=== PATIENT | female | born 1985 | race Caucasian/White ===

== ENCOUNTER 2018-05-13 21:38 | Emergency (ER) | payer OTHER ==
[2018-05-13] MEDS ORDERED: XYLOCAINE 1% HCL 20 ML MDV IJ ONE (22:23)
--- NOTE | 2018-05-13 22:36 | ERPHSYRPT ---
- History of Present Illness Time Seen by Provider: 05/13/18 22:17 Source: patient Exam Limitations: no limitations Patient Subjective Stated Complaint: PT WAS CUTTING FABRIC WITH A RAZOR KNIFE AND CUT HER L THUMB; MINOR LACERATION NOTED TO L THUMB; BLEEDING CONTROLLED ART INSTRUCTOR. Triage Nursing Assessment: PT A&O X3; SKIN P, W, & D; NO OTHER DISTRESS NOTED; AMBULATED TO ROOM PER SELF. Physician History: patient accidentally cut left thumb with sharp razor blade prior to arrival to ED. Patient with 1 cm laceration to the radial side of thumb. Bleeding controlled with pressure. Patient denies any numbness, tingling, weakness to distal finger. Tetanus immunization was 2 years ago Occurred: just prior to arrival Method of Injury: incised Quality: intermittent Severity of Pain-Max: mild Severity of Pain-Current: mild Extremities Pain Location: thumb: left Modifying Factors: Improves With: immobilization (iimprove), movement (worsen) Associated Symptoms: none Allergies/Adverse Reactions: No Known Drug Allergies Allergy (Verified 05/13/18 21:57) Home Medications: Venlafaxine HCl [Venlafaxine HCl ER] 75 mg PO DAILY 05/13/18 [History] Hx Tetanus, Diphtheria Vaccination/Date Given: Yes Hx Influenza Vaccination/Date Given: No Hx Pneumococcal Vaccination/Date Given: No Immunizations Up to Date: No - Review of Systems Constitutional: No Fever, No Chills Eyes: No Symptoms Ears, Nose, & Throat: No Symptoms Respiratory: No Symptoms, No Cough, No Dyspnea Cardiac: No Symptoms, No Chest Pain, No Edema, No Syncope Abdominal/Gastrointestinal: No Symptoms, No Abdominal Pain, No Nausea, No Vomiting, No Diarrhea Genitourinary Symptoms: No Symptoms, No Dysuria Musculoskeletal: No Symptoms, No Back Pain, No Neck Pain Skin: Other (left thumb laceration), No Rash Neurological: No Symptoms, No Dizziness, No Focal Weakness, No Sensory Changes Psychological: No Symptoms Endocrine: No Symptoms Hematologic/Lymphatic: No Symptoms Immunological/Allergic: No Symptoms All Other Systems: Reviewed and Negative - Past Medical History Pertinent Past Medical History: Yes Cardiac History: Deep Vein Thrombosis - Past Surgical History Past Surgical History: Yes Female Surgical History: Tubal Ligation - Social History Smoking Status: Current every day smoker How long have you smoked: 15 Exposure to second hand smoke: No Drug Use: none Patient Lives Alone: No - Female History Hx Last Menstrual Period: 2 MONTHS Hx Now: No - Nursing Vital Signs Nursing Vital Signs: Initial Vital Signs Temperature 98.3 F 05/13/18 21:48 Pulse Rate 86 05/13/18 21:48 Respiratory Rate 16 05/13/18 21:48 Blood Pressure 111/78 05/13/18 21:48 O2 Sat by Pulse Oximetry 97 05/13/18 21:48 Pain Scale Pain Intensity 2 - Physical Exam General Appearance: alert Eyes, Ears, Nose, Throat Exam: moist mucous membranes Neck Exam: non-tender, supple Cardiovascular/Respiratory Exam: chest non-tender, normal breath sounds, regular rate/rhythm, no respiratory distress Abdominal Exam: non-tender, No guarding Back Exam: normal inspection, No vertebral tenderness Shoulder Exam: normal inspection Elbow/Forearm Exam: normal inspection, limited ROM Hand Exam: normal ROM, laceration (1 cm laceration to subcutaneous on the radial aspect of left thumb) Neuro/Tendon Exam: normal sensation, normal motor functions, normal tendon functions, no evidence tendon injury Mental Status Exam: alert, oriented x 3, cooperative Skin Exam: normal color, warm, dry SpO2 Interpretation: normal SpO2: 97 Oxygen Delivery: Room Air Procedures - Laceration/Wound Repair Left Finger Wound Location: Left, hand (thumb) Wound Length (cm): 1 Wound's Depth, Shape: superficial Wound Explored: clean Irrigated: Yes Hibiclens Prep: Yes Anesthesia: local, 1% Lidocaine Volume Anesthetic (ccs): 4 Wound Debrided: minimal Wound Repaired With: sutures Suture Size/Type: 5-0, nylon Number of Sutures: 5 Layer Closure?: No Sterile Dressing Applied?: Yes Splint Applied?: Yes Type of Splint Applied: Aluminum Finger Splint Sling Applied?: No - Course Nursing assessment & vital signs reviewed: Yes Ordered Tests: Active Orders 24 hr Category Date Time Status Prepare for Sutures STAT Care 05/13/18 22:23 Active Splint STAT Care 05/13/18 22:23 Active Sutures STAT Care 05/13/18 22:26 Active Medication Summary Discontinued Medications Generic Name Dose Route Start Last Admin Trade Name Freq PRN Reason Stop Dose Admin Lidocaine HCl 5 ml 05/13/18 22:23 05/13/18 22:48 Xylocaine 1% Hcl 20 Ml Mdv IJ 05/13/18 22:24 5 ml STAT ONE Administration Lidocaine HCl Confirm 05/13/18 22:44 Xylocaine 1% Hcl 20 Ml Mdv Administered 05/13/18 22:45 Dose 5 ml .ROUTE .STK-MED ONE - Progress Progress: improved Counseled pt/family regarding: diagnosis - Departure Time of Disposition: 23:22 Departure Disposition: Home Clinical Impression: Laceration of left thumb Condition: Stable Critical Care Time: No Instructions: Finger Fracture Additional Instructions: sutures removed in 10-14 days. Wear splint for the next 1-2 days. May take Motrin 800 mg every 8 hours with food and/or Tylenol 1 g every 4 hours for pain/discomfort. Return for worse pain,, swelling, redness, pus from wound or any problems
[2018-05-13] MEDS ORDERED: XYLOCAINE 1% HCL 20 ML MDV ONE (22:44)
[2018-05-13] MEDS ORDERED: BACIGUENT PACKET ONE (23:22)
[2018-05-13 23:39] VITALS: BP 114/74; PULSE 74; O2SAT 99
== END 2018-05-13 23:38 | disposition home or self-care (01) ==
LOC: ED 21:38
PROC: 0HQGXZZ Repair Left Hand Skin, External Approach (ICD-10-PCS; principal; 2018-05-13)
DX: S61.012A Laceration without foreign body of left thumb without damage to nail, initial encounter (principal); W45.8XXA Other foreign body or object entering through skin, initial encounter; Y93.D2 Activity, sewing; Y92.009 Unspecified place in unspecified non-institutional (private) residence as the place of occurrence of the external cause
CPT/HCPCS: 12001; 96372; 99284; A9270-GY

== ENCOUNTER 2018-06-10 14:10 | Emergency (ER) | payer OTHER ==
[2018-06-10] MEDS ORDERED: Zofran 4 MG/2 ML VIAL IV ONE (14:40)
[2018-06-10] MEDS ORDERED: Sodium Chloride 0.9% 1000 ML 1,000 ML IV STA (14:40)
[2018-06-10] MEDS ORDERED: Pepcid 20 MG VIAL IV ONE ×2 (14:40→15:56)
[2018-06-10] MEDS ORDERED: TORAdol 30 mg Injection IV ONE (14:40)
--- NOTE | 2018-06-10 14:40 | ERPHSYRPT ---
- History of Present Illness Time Seen by Provider: 06/10/18 14:36 Historian: patient Exam Limitations: no limitations Physician History: The patient is a 32-year-old female complaining of worsening left-sided abdominal pain since yesterday. She said mild nausea. She denies vomiting or diarrhea. She has felt hot as well as chilled. She has no urinary problems. She has been taking ibuprofen without much relief. Her past medical history is significant for kidney infections and tubal ligation. Timing/Duration: yesterday, gradual onset, worse Activities at Onset: none Quality: sharpness Abdominal Pain Onset Location: LLQ Pain Radiation: back Severity of Pain-Max: moderate Severity of Pain-Current: moderate Modifying Factors: Improves With: analgesics Associated Symptoms: nausea, No diarrhea, No vomiting, No weakness Previous symptoms: no prior history Allergies/Adverse Reactions: No Known Drug Allergies Allergy (Verified 06/10/18 14:37) Home Medications: No Reportable Medications [No Reported Medications] 06/10/18 [History] Hx Tetanus, Diphtheria Vaccination/Date Given: Yes Hx Influenza Vaccination/Date Given: No Hx Pneumococcal Vaccination/Date Given: No - Review of Systems Constitutional: Fever, Chills Eyes: No Symptoms Ears, Nose, & Throat: No Symptoms Respiratory: No Cough, No Dyspnea Cardiac: No Chest Pain, No Edema, No Syncope Abdominal/Gastrointestinal: Abdominal Pain, Nausea, No Vomiting, No Diarrhea Genitourinary Symptoms: No Dysuria Musculoskeletal: No Back Pain, No Neck Pain Skin: No Rash Neurological: No Dizziness, No Focal Weakness, No Sensory Changes Psychological: No Symptoms Endocrine: No Symptoms Hematologic/Lymphatic: No Symptoms Immunological/Allergic: No Symptoms All Other Systems: Reviewed and Negative - Past Medical History Pertinent Past Medical History: Yes Cardiac History: Deep Vein Thrombosis - Past Surgical History Past Surgical History: Yes Female Surgical History: Tubal Ligation - Social History Smoking Status: Current every day smoker How long have you smoked: 15 Exposure to second hand smoke: No Drug Use: none Patient Lives Alone: No - Nursing Vital Signs Nursing Vital Signs: Initial Vital Signs Temperature 97.9 F 06/10/18 14:26 Pulse Rate 85 06/10/18 14:26 Respiratory Rate 16 06/10/18 14:26 Blood Pressure 116/77 06/10/18 14:26 O2 Sat by Pulse Oximetry 98 06/10/18 14:26 Pain Scale Pain Intensity 8 - Physical Exam General Appearance: no apparent distress, alert Eye Exam: PERRL/EOMI, eyes nml inspection Ears, Nose, Throat Exam: normal ENT inspection, pharynx normal, moist mucous membranes Neck Exam: normal inspection, non-tender, supple, full range of motion Respiratory Exam: normal breath sounds, lungs clear, No respiratory distress Cardiovascular Exam: regular rate/rhythm, normal heart sounds Gastrointestinal/Abdomen Exam: tenderness (left side) Pelvic Exam: not done Rectal Exam: not done Back Exam: normal inspection, normal range of motion, No CVA tenderness, No vertebral tenderness Extremity Exam: normal inspection, normal range of motion, pelvis stable Neurologic Exam: alert, oriented x 3, cooperative, normal mood/affect, nml cerebellar function, sensation nml, No motor deficits Skin Exam: normal color, warm, dry SpO2 Interpretation: normal - Radiology Exams Abdomen X-ray Interpretation: Interpreted by me, Negative Ordered Tests: Active Orders 24 hr Category Date Time Status Clean Catch Urine Specimen STAT Care 06/10/18 14:40 Active IV Insertion STAT Care 06/10/18 14:40 Active KUB Stat Exams 06/10/18 14:40 Taken CBC W DIFF Stat Lab 06/10/18 15:00 Completed CMP Stat Lab 06/10/18 15:00 Completed HCG QUALITATIVE,SERUM Stat Lab 06/10/18 15:00 Completed LIPASE Stat Lab 06/10/18 15:00 Completed Lactic Acid Stat Lab 06/10/18 14:50 Completed UA W/RFX UR CULTURE Stat Lab 06/10/18 15:30 Completed Urine Triage Profile Stat Lab 06/10/18 15:30 Completed Medication Summary Discontinued Medications Generic Name Dose Route Start Last Admin Trade Name Freq PRN Reason Stop Dose Admin Famotidine 20 mg 06/10/18 14:40 06/10/18 16:06 Pepcid 20 Mg Vial IV 06/10/18 14:41 20 mg STAT ONE Administration Famotidine Confirm 06/10/18 15:56 Pepcid 20 Mg Vial Administered 06/10/18 15:57 Dose 20 mg IV .STK-MED ONE Sodium Chloride 1,000 mls @ 999 mls/hr 06/10/18 14:40 06/10/18 16:06 Sodium Chloride 0.9% 1000 Ml IV 06/10/18 15:40 999 mls/hr .Q1H1M STA Administration Sodium Chloride Confirm 06/10/18 15:56 Sodium Chloride 0.9% 1000 Ml Administered 06/10/18 15:57 Dose 1,000 mls @ ud .ROUTE .STK-MED ONE Ketorolac Tromethamine 30 mg 06/10/18 14:40 06/10/18 16:07 Toradol 30 Mg Injection IV 06/10/18 14:41 30 mg STAT ONE Administration Ketorolac Tromethamine Confirm 06/10/18 15:55 Toradol 30 Mg Injection Administered 06/10/18 15:56 Dose 30 mg .ROUTE .STK-MED ONE Ondansetron HCl 4 mg 06/10/18 14:40 06/10/18 16:07 Zofran 4 Mg/2 Ml Vial IV 06/10/18 14:41 4 mg STAT ONE Administration Ondansetron HCl Confirm 06/10/18 15:55 Zofran 4 Mg/2 Ml Vial Administered 06/10/18 15:56 Dose 4 mg .ROUTE .STK-MED ONE Lab/Rad Data: Laboratory Result Diagrams 06/10/18 15:00 06/10/18 15:00 Laboratory Results 06/10/18 06/10/18 06/10/18 Range/Units 15:30 15:30 15:00 WBC (4.0-10.5) K/mm3 RBC (4.1-5.4) M/mm3 Hgb (12.0-16.0) gm/dl Hct (35-47) % MCV (78-100) fl MCH (26-32) pg MCHC (32-36) g/dl RDW (11.5-14.0) % Plt Count (150-450) K/mm3 MPV (6-9.5) fl Gran % (36.0-66.0) % Eos # (Auto) (0-0.5) Absolute Lymphs (auto) (1.0-4.6) Absolute Monos (auto) (0.0-1.3) Lymphocytes % (24.0-44.0) % Monocytes % (0.0-12.0) % Eosinophils % (0.00-5.0) % Basophils % (0.0-0.4) % Absolute Granulocytes (1.4-6.9) Basophils # (0-0.4) Sodium (137-145) mmol/L Potassium (3.5-5.1) mmol/L Chloride (98-107) mmol/L Carbon Dioxide (22-30) mmol/L Anion Gap (5-15) MEQ/L BUN (7-17) mg/dL Creatinine (0.52-1.04) mg/dL Estimated GFR ML/MIN Glucose (74-106) mg/dL Lactic Acid (0.4-2.0) Calcium (8.4-10.2) mg/dL Total Bilirubin (0.2-1.3) mg/dL AST (14-36) U/L ALT (0-35) U/L Alkaline Phosphatase (38-126) U/L Serum Total Protein (6.3-8.2) g/dL Albumin (3.5-5.0) g/dL Lipase (23-300) U/L Serum , Qual NEGATIVE (Negative) Ur Collection Type CCMS Urine Color YELLOW (YELLOW) Urine Appearance HAZY (CLEAR) Urine pH 5.0 (5-6) Ur Specific [place] 1.020 (1.005-1.025) Urine Protein NEGATIVE (Negative) Urine Ketones NEGATIVE (NEGATIVE) Urine Blood NEGATIVE (0-5) Martin/ul Urine Nitrite NEGATIVE (NEGATIVE) Urine Bilirubin NEGATIVE (NEGATIVE) Urine Urobilinogen NORMAL (0-1) mg/dL Ur Leukocyte Esterase NEGATIVE (NEGATIVE) Urine Culture Reflexed NO (NO) Urine Glucose NEGATIVE (NEGATIVE) mg/dL Urine Opiates Level NEGATIVE (NEGATIVE) Ur Methadone NEGATIVE (NEGATIVE) Urine Barbiturates NEGATIVE (NEGATIVE) Ur Phencyclidine (PCP) NEGATIVE (NEGATIVE) Urine Amphetamine NEGATIVE (NEGATIVE) U Benzodiazepine Level NEGATIVE (NEGATIVE) Urine Cocaine NEGATIVE (NEGATIVE) Urine Marijuana (THC) POSITIVE (NEGATIVE) Specimen Received 1530 06/10/18 06/10/18 06/10/18 06/10/18 Range/Units 15:00 15:00 14:50 WBC 6.5 (4.0-10.5) K/mm3 RBC 4.39 (4.1-5.4) M/mm3 Hgb 13.6 (12.0-16.0) gm/dl Hct 39.4 (35-47) % MCV 89.7 (78-100) fl MCH 31.0 (26-32) pg MCHC 34.5 (32-36) g/dl RDW 12.1 (11.5-14.0) % Plt Count 256 (150-450) K/mm3 MPV 10.4 H (6-9.5) fl Gran % 54.9 (36.0-66.0) % Eos # (Auto) 0.17 (0-0.5) Absolute Lymphs (auto) 2.21 (1.0-4.6) Absolute Monos (auto) 0.50 (0.0-1.3) Lymphocytes % 34.2 (24.0-44.0) % Monocytes % 7.7 (0.0-12.0) % Eosinophils % 2.6 (0.00-5.0) % Basophils % 0.6 (0.0-0.4) % Absolute Granulocytes 3.55 (1.4-6.9) Basophils # 0.04 (0-0.4) Sodium 138 (137-145) mmol/L Potassium 4.0 (3.5-5.1) mmol/L Chloride 107 (98-107) mmol/L Carbon Dioxide 25 (22-30) mmol/L Anion Gap 8.9 (5-15) MEQ/L BUN 8 (7-17) mg/dL Creatinine 0.59 (0.52-1.04) mg/dL Estimated GFR > 60.0 ML/MIN Glucose 111 H (74-106) mg/dL Lactic Acid 1.1 (0.4-2.0) Calcium 8.9 (8.4-10.2) mg/dL Total Bilirubin 0.30 (0.2-1.3) mg/dL AST 11 L (14-36) U/L ALT 7 (0-35) U/L Alkaline Phosphatase 54 (38-126) U/L Serum Total Protein 6.4 (6.3-8.2) g/dL Albumin 3.7 (3.5-5.0) g/dL Lipase 28 (23-300) U/L Serum , Qual (Negative) Ur Collection Type Urine Color (YELLOW) Urine Appearance (CLEAR) Urine pH (5-6) Ur Specific [place] (1.005-1.025) Urine Protein (Negative) Urine Ketones (NEGATIVE) Urine Blood (0-5) Martin/ul Urine Nitrite (NEGATIVE) Urine Bilirubin (NEGATIVE) Urine Urobilinogen (0-1) mg/dL Ur Leukocyte Esterase (NEGATIVE) Urine Culture Reflexed (NO) Urine Glucose (NEGATIVE) mg/dL Urine Opiates Level (NEGATIVE) Ur Methadone (NEGATIVE) Urine Barbiturates (NEGATIVE) Ur Phencyclidine (PCP) (NEGATIVE) Urine Amphetamine (NEGATIVE) U Benzodiazepine Level (NEGATIVE) Urine Cocaine (NEGATIVE) Urine Marijuana (THC) (NEGATIVE) Specimen Received - Progress Progress: improved Counseled pt/family regarding: lab results, diagnosis, rad results - Departure Time of Disposition: 16:49 Departure Disposition: Home Clinical Impression: Abdominal pain Condition: Stable Critical Care Time: No Referrals: DOCTOR,NO FAMILY [Primary Care Provider] - Additional Instructions: You have abdominal pain but the cause at this time is unknown. You were given famotidine 20 mg, Zofran 4 mg, Toradol 30 mg, and fluids by IV in the ER. All other lab results and your abdominal x-ray were normal. You can continue taking Tylenol and ibuprofen as needed. Follow-up with your primary medical doctor as needed.
[2018-06-10 15:05] LABS: BASOPHIL % 0.6 % (0.0-0.4); Basophil (Absolute #) 0.04 (0-0.4); Eosinophil % 2.6 % (0.00-5.0); Eosinophil (Absolute #) 0.17 (0-0.5); Granulocyte Absolute (ANC) 3.55 (1.4-6.9); Granulocytes % 54.9 % (36.0-66.0); Hematocrit 39.4 % (35-47); Hemoglobin 13.6 gm/dl (12.0-16.0); Lymphocyte (Absolute #) 2.21 (1.0-4.6); Lymphocytes % 34.2 % (24.0-44.0); Mean Cell Volume 89.7 fl (78-100); Mean Corpuscular Hgb Concent. 34.5 g/dl (32-36); Mean Platelet Volume 10.4 fl (6-9.5); Monocytes % 7.7 % (0.0-12.0); Platelet Count 256 K/mm3 (150-450); Red Blood Count 4.39 M/mm3 (4.1-5.4); Red Cell Distribution Width 12.1 % (11.5-14.0); White Blood Count 6.5 K/mm3 (4.0-10.5)
[2018-06-10 15:35] LABS: ALBUMIN 3.7 g/dL (3.5-5.0); ALKALINE PHOSPHATASE 54 U/L (38-126); ANION GAP 8.9 MEQ/L (5-15); BLOOD UREA NITROGEN 8 mg/dL (7-17); CHLORIDE 107 mmol/L (98-107); Calcium 8.9 mg/dL (8.4-10.2); Carbon Dioxide 25 mmol/L (22-30); Creatinine 1 0.59 mg/dL (0.52-1.04); Glucose 111 mg/dL (74-106); LIPASE 28 U/L (23-300); SGOT/AST 11 U/L (14-36); SGPT/ALT 7 U/L (0-35); SODIUM 138 mmol/L (137-145); Total Protein 6.4 g/dL (6.3-8.2)
[2018-06-10] MEDS ORDERED: TORAdol 30 mg Injection ONE (15:55)
[2018-06-10] MEDS ORDERED: Zofran 4 MG/2 ML VIAL ONE (15:55)
[2018-06-10] MEDS ORDERED: Sodium Chloride 0.9% 1000 ML 1,000 ML ONE (15:56)
[2018-06-10 16:14] VITALS: O2SAT 99
[2018-06-10 16:22] LABS: Appearance HAZY (CLEAR); Bilirubin NEGATIVE (NEGATIVE); Blood NEGATIVE Ery/ul (0-5); Glucose NEGATIVE (NEGATIVE); Ketones NEGATIVE (NEGATIVE); Leukocyte Esterase NEGATIVE (NEGATIVE); Nitrite NEGATIVE (NEGATIVE); Protein,Urine Dip NEGATIVE (Negative); Urobilinogen NORMAL mg/dL (0-1)
[2018-06-10 16:35] LABS: Amphetamine,Urine NEGATIVE (NEGATIVE); Barbiturate,Urine NEGATIVE (NEGATIVE); Benzodiazepine,Urine NEGATIVE (NEGATIVE); Cocaine,Urine NEGATIVE (NEGATIVE); Methadone,Urine NEGATIVE (NEGATIVE); Opiate,Urine NEGATIVE (NEGATIVE); PCP,Urine NEGATIVE (NEGATIVE); THC,Urine POSITIVE (NEGATIVE)
[2018-06-10 17:21] VITALS: BP 108/68; PULSE 62
--- NOTE | 2018-06-10 22:04 | XRAY ---
Indication: Abdomen pain and nausea. Comparison: None KUB nonacute and nonobstructed. Solid organs and osseous structures unremarkable. Lung bases clear. Impression: Negative KUB.
== END 2018-06-10 17:21 | disposition home or self-care (01) ==
LOC: ED 14:10
DX: R10.32 Left lower quadrant pain (principal); R11.0 Nausea
CPT/HCPCS: 36000; 36415; 74018; 80053; 80307; 81002; 83605; 83690; 84703; 85025; 96360; 96374; 96375; 99284; J1885; J2405

== ENCOUNTER 2018-07-28 13:08 | Emergency (ER) | payer OTHER ==
[2018-07-28 13:43] VITALS: BP 131/86; PULSE 74; O2SAT 98
--- NOTE | 2018-07-28 14:08 | ERPHSYRPT ---
- History of Present Illness Time Seen by Provider: 07/28/18 13:40 Source: patient Exam Limitations: no limitations Patient Subjective Stated Complaint: states developed rash to perineal area since tuesday. on tuesday rash became blisters. states is painful. Triage Nursing Assessment: ambulated to room per self. skin w/d, color normal. Physician History: 32 y/o white female presents with 5 day h/o right perineal rash patch. over last 5 days, rash blistered then dried followed by burning sharp pain. pt denies dysuria and denies vaginal discharge. Timing/Duration: day(s) (5) Activites at Onset: none Quality: burning, sharpness, stabbing Onset Location: other (right perineum) Pain Radiation: none Severity of Pain-Max: moderate Severity of Pain-Current: moderate Modifying Factors: Improves With: nothing. Worsens With: breathing, coughing, defecating, eating, exercise, lying down, movement, palpation, urinating, vomiting, position, walking Associated Symptoms: other (oral cold sores), No abdominal pain, No chills, No diaphoresis, No nausea, No vomiting, No dysuria, No nocturia, No urinary frequency, No loss of bladder control, No lower back pain, No lumps Sexual intercourse history: single partner, unprotected intercourse Allergies/Adverse Reactions: No Known Drug Allergies Allergy (Verified 06/10/18 14:37) Hx Tetanus, Diphtheria Vaccination/Date Given: Yes Hx Influenza Vaccination/Date Given: No Hx Pneumococcal Vaccination/Date Given: No - Past Medical History Pertinent Past Medical History: Yes Neurological History: No Pertinent History ENT History: No Pertinent History Cardiac History: Deep Vein Thrombosis Respiratory History: No Pertinent History Musculoskeletal History: No Pertinent History GI Medical History: No Pertinent History History: No Pertinent History Psycho-Social History: No Pertinent History Female Reproductive Disorders: No Pertinent History - Past Surgical History Past Surgical History: Yes Neuro Surgical History: No Pertinent History Cardiac: No Pertinent History Respiratory: No Pertinent History Gastrointestinal: No Pertinent History Genitourinary: No Pertinent History Musculoskeletal: No Pertinent History Female Surgical History: Tubal Ligation - Social History Smoking Status: Current every day smoker How long have you smoked: 20 Exposure to second hand smoke: No Drug Use: none Patient Lives Alone: No - Female History Hx Now: No - Review of Systems Constitutional: No Symptoms, No Fever Eyes: No Symptoms, No Eye Pain Ears, Nose, & Throat: No Symptoms, No Ear Pain, No Mouth Pain, No Painful Swallowing Respiratory: No Symptoms, No Cough, No Dyspnea, No Stridor, No Wheezing Cardiac: No Symptoms, No Chest Pain, No Palpitations, No Syncope, No Orthopnea Abdominal/Gastrointestinal: No Symptoms, No Abdominal Pain, No Nausea, No Vomiting, No Diarrhea Genitourinary Symptoms: No Symptoms, No Dysuria, No Frequency, No Hematuria Musculoskeletal: No Symptoms, No Back Pain, No Neck Pain, No Deformity, No Fall Skin: Skin Lesions (patch of rash right perineum) Neurological: No Symptoms Psychological: No Symptoms Endocrine: No Symptoms Hematologic/Lymphatic: No Symptoms Immunological/Allergic: No Symptoms All Other Systems: Reviewed and Negative - Nursing Vital Signs Nursing Vital Signs: Initial Vital Signs Temperature 97.8 F 07/28/18 13:29 Pulse Rate 74 07/28/18 13:29 Respiratory Rate 16 07/28/18 13:29 Blood Pressure 131/86 07/28/18 13:29 O2 Sat by Pulse Oximetry 98 07/28/18 13:29 Pain Scale Pain Intensity 4 - Physical Exam General Appearance: no apparent distress, alert, anxiety Eye Exam: PERRL/EOMI Ears, Nose, Throat Exam: normal ENT inspection, moist mucous membranes Neck Exam: normal inspection, non-tender, supple, full range of motion Respiratory Exam: normal breath sounds, lungs clear, airway intact, No chest tenderness, No respiratory distress, No accessory muscle use, No rhonchi, No wheezing, No stridor Cardiovascular Exam: regular rate/rhythm, normal heart sounds, normal peripheral pulses Gastrointestinal/Abdomen Exam: soft, normal bowel sounds, No tenderness, No guarding, No rebound Rectal Exam: not done Back Exam: normal inspection, normal range of motion, No CVA tenderness, No vertebral tenderness Extremity Exam: normal inspection, normal range of motion, pelvis stable Neurologic Exam: alert, oriented x 3, cooperative, 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 no odor no drainage no cellulitis. tenderness present) SpO2: 98 Oxygen Delivery: Room Air - Course Nursing assessment & vital signs reviewed: Yes - Progress Progress: unchanged Counseled pt/family regarding: diagnosis, need for follow-up - Departure Time of Disposition: 14:30 Departure Disposition: Home Clinical Impression: Herpes genitalia Condition: Stable Critical Care Time: No Referrals: DOCTOR,NO FAMILY [Primary Care Provider] - Instructions: Viral Exanthem (DC) Additional Instructions: keep site clean. follow up with primary doctor for further management Prescriptions: Oxycodone HCl/Acetaminophen [Percocet 5-325 mg Tablet] 1 each PO Q6H PRN PRN # 12 tablet MDD 4 PRN Reason: Pain Acyclovir 400 mg PO TID #30 tablet
== END 2018-07-28 15:00 | disposition home or self-care (01) ==
LOC: ED 13:08
DX: A60.00 Herpesviral infection of urogenital system, unspecified (principal)
CPT/HCPCS: 99283